=== PATIENT | male | born 1945 | race Caucasian/White ===

== ENCOUNTER 2020-04-07 06:45 | Outpatient (NON) | payer MEDICARE, SELFPAY ==
[2020-04-07 16:17] LABS: SARS-CoV-2 RNA PCR Negative
== END 2020-04-07 06:46 ==
PROVIDERS: PCP Internal Medicine
DX: R13.10 Dysphagia, unspecified (principal); Z20.828 Contact with and (suspected) exposure to other viral communicable diseases
CPT/HCPCS: 87635; C9803; U0003